=== PATIENT | female | born 1950 | race Two or more races ===

== ENCOUNTER → 2018-10-05 | Outpatient (CLI) | payer MEDICARE, OTHER ==
[2018-03-27 15:00] VITALS: BP 101/43
[~2018-10-05] MED LIST: METF10007 PO
--- NOTE | 2018-10-05 16:33 | KCIC ---
Renal ultrasound 10/05/2018 INDICATION: Acute renal insufficiency COMPARISON STUDY: Chest, abdomen, and pelvis March 20, 2018 Discussion: Ultrasound evaluation of the kidneys was performed. Static images were submitted to PACS. The right kidney measures 11.8 x 2.8 x 4.6 cm. Left kidney measures 11.5 x 5.2 x 5.2 cm. No evidence of hydronephrosis, nephrolithiasis, or focal renal lesion involving either kidney is identified. The prevoid bladder volume was only 17 cc. Limited visualization of the aorta is unremarkable. IMPRESSION: Unremarkable sonographic appearance of the kidneys. Electronically signed by: Tyree Ronquillo MD (10/05/2018 4:29 PM) [id number]
== END | disposition home or self-care (01) ==
LOC: KCIC US 14:54
PROVIDERS: ATTEND Internal Medicine Nephrology
DX: N28.89 Other specified disorders of kidney and ureter (principal)
CPT/HCPCS: 76770